=== PATIENT | female | born 2000 | race Caucasian/White ===

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

== ENCOUNTER → 2019-03-23 | Outpatient (CLI) | payer OTHER, MEDICAID ==
[~2019-03-23] MED LIST: IBUP-1114 PO; MAPA500T2 PO; prenatal PO
== END ==
LOC: M SMT 09:32
PROVIDERS: ATTEND Specialist
DX: N93.8 Other specified abnormal uterine and vaginal bleeding (principal)

== ENCOUNTER → 2019-03-25 | Outpatient (REF) | payer OTHER, MEDICAID | LOC: M LABSMT 12:59 | PROVIDERS: ATTEND Specialist | DX: N93.8 Other specified abnormal uterine and vaginal bleeding (principal) ==

== ENCOUNTER → 2019-10-19 | Outpatient (REF) | payer OTHER, MEDICAID | LOC: M PLALAB 10:08 | PROVIDERS: ATTEND Obstetrics & Gynecology | DX: Z34.91 Encounter for supervision of normal pregnancy, unspecified, first trimester (principal) ==

== ENCOUNTER → 2019-12-08 | Outpatient (REF) | payer OTHER, MEDICAID ==
[2019-12-08 15:01] LABS: CHLAMYDIA DNA AMPLIFICATION NEGATIVE (NEGATIVE); GC DNA AMPLIFICATION NEGATIVE (NEGATIVE)
[2019-12-08 17:43] LABS: HEMOGLOBIN 12.8 g/dl (12.0-15.5); MEAN CORPUSCULAR HEMOGLOBIN 30.3 pg (27.0-33.0); MEAN CORPUSCULAR HGB CONC 33.7 g/dl (32.0-36.5); PLATELET COUNT, AUTOMATED 294 10^3/uL (150-450); RED BLOOD COUNT 4.22 10^6/uL (4.00-5.40); WHITE BLOOD COUNT 8.8 10^3/uL (4.0-10.0)
[2019-12-09 11:39] LABS: HEPATITIS B SURFACE ANTIGEN NEGATIVE (NEGATIVE); HEPATITIS C VIRUS ABY INDEX 0.1 INDEX (<0.8); HIV 1&2 SCREEN CENTAUR NEGATIVE (NEGATIVE); RUBELLA IgG QUALITATIVE IMMUNE (IMMUNE)
== END ==
LOC: M PLALAB 11:57
PROVIDERS: ATTEND Obstetrics & Gynecology
DX: Z34.91 Encounter for supervision of normal pregnancy, unspecified, first trimester (principal)

== ENCOUNTER → 2019-12-14 | Outpatient (CLI) | payer OTHER, MEDICAID | LOC: M WHC 11:07 | PROVIDERS: ATTEND Obstetrics & Gynecology | DX: Z34.91 Encounter for supervision of normal pregnancy, unspecified, first trimester (principal) ==

== ENCOUNTER → 2020-01-13 | Outpatient (CLI) | payer SELFPAY ==
--- NOTE | 2020-01-13 12:49 | REP ---
OB ULTRASOUND: Real-time sonographic evaluation of the gravid uterus performed. There is a single living intrauterine gestation. The estimated gestational age is 19 weeks 0 days based on today's ultrasound measurements, [facility] 06/08/2020. BPD 43 mm = 19 weeks 0 days HC 160 mm = 18 weeks 6 days AC 140 mm = 19 weeks 3 days FL 30 mm = 19 weeks 3 days HC/AC ratio 1.14 within normal range of 1.06 to 1.25. Estimated weight 288 grams 59th percentile. SEEN/GROSSLY UNREMARKABLE Lateral ventricles Yes Posterior fossa Yes Upper lip Yes Four-chamber heart Yes. Echogenic focus is seen in each ventricle, likely related to papillary muscles/cordae tendinea. LVOT Yes RVOT Yes Stomach Yes Cord insertion Yes Three vessel cord Yes Kidneys Yes Bladder Yes Spine No. Only seen on sagittal views. Cervix is closed and measures 4.1 cm in length. heart rate 172 beats per minute. position is transverse with head toward the maternal right side. Placenta is anterior and grade 0 with no previa or abruption. Amniotic fluid within normal limits.
== END ==
LOC: M WHC 10:37
PROVIDERS: ATTEND Obstetrics & Gynecology
DX: Z36.89 Encounter for other specified antenatal screening (principal); Z3A.19 19 weeks gestation of pregnancy

== ENCOUNTER → 2020-03-04 | Outpatient (CLI) | payer SELFPAY ==
--- NOTE | 2020-03-04 13:53 | REP ---
REASON: Followup spine and intracardiac echogenic foci. Multiple ultrasonographic images of the gravid uterus show a single living intrauterine gestation in the transverse head to maternal left position. Doppler interrogation of the heart shows a heart rate of 146 beats per minute. The placenta is anterior and not low lying. The subjective amniotic fluid volume is within normal limits. The cervix measures 4.3 cm in length and is closed. Evaluation of the maternal adnexal spaces shows no abnormalities. BPD 6.6 cm = 26 weeks 3 days HC 24.4 cm = 26 weeks 4 days AC 22.0 cm = 26 weeks 3 days FL 4.9 cm = 26 weeks 3 days The estimated weight is 942 grams, which is at the 47th percentile for a 26 week 2 day gestational age and 39th percentile for a 26 week 4 day gestational age. The spine was visualized and showed no abnormalities. The intracardiac echogenic foci seen on the prior exam are not imaged today. IMPRESSION: Single living intrauterine gestation, as described above, with an estimated gestational age of 26 weeks 1 day via composite criteria and an estimated date of delivery of 06/09/2020 by today's exam. No anomalies were detected.
== END ==
LOC: M WHC 10:20
PROVIDERS: ATTEND Obstetrics & Gynecology
DX: O28.3 Abnormal ultrasonic finding on antenatal screening of mother (principal)

== ENCOUNTER → 2020-04-14 | Outpatient (REF) | payer MEDICAID, OTHER, SELFPAY ==
[~2020-04-14] MED LIST changes: +ACET-683 PO
[2020-05-12 13:43] LABS: HEMATOCRIT 37.7 % (36.0-47.0); HEMOGLOBIN 12.3 g/dl (12.0-15.5); MEAN CORPUSCULAR HEMOGLOBIN 30.1 pg (27.0-33.0); MEAN CORPUSCULAR HGB CONC 32.6 g/dl (32.0-36.5); MEAN CORPUSCULAR VOLUME 92.4 fl (80.0-96.0); PLATELET COUNT, AUTOMATED 236 10^3/uL (150-450); RED BLOOD COUNT 4.08 10^6/uL (4.00-5.40); WHITE BLOOD COUNT 12.2 10^3/uL (4.0-10.0)
[2020-05-29 16:28] LABS: ALT/SGPT 13 U/L (12-78); BILIRUBIN,TOTAL 0.2 MG/DL (0.2-1.0); CREATININE FOR GFR 0.51 MG/DL (0.55-1.30); GLOMERULAR FILTRATION RATE > 60.0 (>60); LDH LACTATE DEHYDROGENASE 176 U/L (84-246); URIC ACID 3.4 MG/DL (2.6-6.0)
== END ==
LOC: M SFHCWAGY 09:13
PROVIDERS: ATTEND Advanced Practice Midwife
DX: R51 Headache (principal)

== ENCOUNTER → 2020-04-27 | Outpatient (CLI) | payer MEDICAID, OTHER ==
[2020-04-27 17:44] LABS: TOTAL PROTEIN,RANDOM URINE 20.7 MG/DL (0.0-12.0)
== END ==
LOC: M PLALAB 13:48
PROVIDERS: ATTEND Advanced Practice Midwife
DX: O26.893 Other specified pregnancy related conditions, third trimester (principal); Z3A.00 Weeks of gestation of pregnancy not specified; R51 Headache

== ENCOUNTER → 2020-05-11 | Outpatient (REF) | payer MEDICAID, SELFPAY | LOC: M LAB REF 16:40 | PROVIDERS: ATTEND Advanced Practice Midwife | DX: Z34.83 Encounter for supervision of other normal pregnancy, third trimester (principal); Z3A.00 Weeks of gestation of pregnancy not specified ==

== ENCOUNTER 2020-06-03 23:34 | Outpatient (CLI) | payer MEDICAID, SELFPAY ==
[~2020-06-03] VITALS: Ht 157.5 cm; Wt 70.9 kg
[~2020-06-03 23:34] MED LIST changes: -ACET-683 PO
[2020-06-03 23:50] VITALS: BP 119/67
[2020-06-04] MEDS ORDERED: LR 1,000 ML IV SCH (00:15)
[2020-06-04] MEDS ORDERED: LACTATED RINGER'S 1000 ML IV ONE (00:15)
--- NOTE | 2020-06-04 00:19 | IPNPDOC ---
Text Note Date of Service The patient was seen on 06/04/20. NOTE Outpatient Stalin garcia arrived to L&D with C/O contractions through the day, that increased intensity at 2099. Denies LOF and bleeding. States good FM. States she has been eating and drinking (6 bottles of water) throughout the day. SVE /-1 by JUAN MIGUEL Barrera with informed consent, same as in the office on Saturday per patient. FHR 140bpm baseline, Cat 1. [place] shows UC 2-4min, 90-100sec. long, with multifocal ctx. noted. Discussed sedation and IV hydration. Shared decision to try IV Hydration first. LR bolus 500mL then LR @ 125mL/hr. Will Recheck in 2 hours for progress. VS,Fishbone, I+O VS, Fishbone, I+O Vital Signs Date Time Temp Pulse Resp B/P (MAP) Pulse Ox O2 Delivery O2 Flow Rate FiO2 06/03/20 23:50 98.0 108 16 119/67 (84) Ashley Weeks CNM Jun 04, 2020 00:19
[2020-06-04 00:49] LABS: HEMATOCRIT 39.1 % (36.0-47.0); MEAN CORPUSCULAR HEMOGLOBIN 28.8 pg (27.0-33.0); MEAN CORPUSCULAR HGB CONC 33.2 g/dl (32.0-36.5); MEAN CORPUSCULAR VOLUME 86.7 fl (80.0-96.0); PLATELET COUNT, AUTOMATED 270 10^3/uL (150-450); RED BLOOD COUNT 4.51 10^6/uL (4.00-5.40); WHITE BLOOD COUNT 16.1 10^3/uL (4.0-10.0)
[2020-06-04 00:51] VITALS: BP 107/64
--- NOTE | 2020-06-04 01:24 | IPNPDOC ---
Text Note Date of Service The patient was seen on 06/04/20. NOTE Outpatient States contractions less frequent but same intensity as when she arrived to L&D. States good FM. Denies bleeding, LOF. SVE /-1. posterior, no bloody show noted on glove by JUAN MIGUEL Barrera with informed consent. Cat 1 FHR 130baseline. UC by TOCO 3-6 min, 60-100sec., mild to palpation. Shared decision to discharge home with labor precautions. Reviewed labor precautions, warning signs, and access to care. VS,Fishbone, I+O VS, Fishbone, I+O Laboratory Tests 06/04/20 00:32 Vital Signs Date Time Temp Pulse Resp B/P (MAP) Pulse Ox O2 Delivery O2 Flow Rate FiO2 06/04/20 00:51 88 16 107/64 (78) 06/03/20 23:50 98.0 Ashley Weeks CNM Jun 04, 2020 01:24
== END 2020-06-04 02:21 | disposition home or self-care (01) ==
LOC: M LDO 23:34
PROVIDERS: ATTEND Advanced Practice Midwife
DX: O47.1 False labor at or after 37 completed weeks of gestation (principal); Z3A.38 38 weeks gestation of pregnancy

== ENCOUNTER 2020-06-04 19:48 | Inpatient (IN) | payer MEDICAID ==
[~2020-06-04] VITALS: Ht 157.5 cm; Wt 71.1 kg
[2020-06-04] VITALS (9 sets, daily range): BP systolic 113–139; BP diastolic 64–80
[2020-06-04] MEDS ORDERED: OXYTOCIN 30 UNITS IN 0.9% NaCl 500ML IV BAG (J2590) As Ordered ONE (21:22)
[2020-06-04] MEDS ORDERED: LACTATED RINGER'S 1000 ML IV STA (21:24)
[2020-06-04 21:47] LABS: HEMATOCRIT 36.7 % (36.0-47.0); MEAN CORPUSCULAR HEMOGLOBIN 27.8 pg (27.0-33.0); MEAN CORPUSCULAR HGB CONC 32.7 g/dl (32.0-36.5); MEAN CORPUSCULAR VOLUME 85.2 fl (80.0-96.0); PLATELET COUNT, AUTOMATED 280 10^3/uL (150-450); RED BLOOD COUNT 4.31 10^6/uL (4.00-5.40)
--- NOTE | 2020-06-04 22:24 | IPNPDOC ---
Text Note Date of Service The patient was seen on 06/04/20. NOTE Intrapartum Note Pt feeling increased pressure, breathing well with ctx. Vitals wnl, afebrile Cat I FHRT ctx q2-3min SCE: /-1, AROM performed with meconium stained fluid noted Will continue to closely observe Dr. Russo notified of presence of meconium Plan to recheck in 1-2hr or earlier as indicated Safe to proceed Dr. Judith Salazar MD VS,Mike, I+O VSMike I+O Laboratory Tests 06/04/20 21:42 Vital Signs Date Time Temp Pulse Resp B/P (MAP) Pulse Ox O2 Delivery O2 Flow Rate FiO2 06/04/20 20:01 97.4 115 16 114/72 (86) Judith Salazar MD Jun 04, 2020 22:24
[2020-06-04] MEDS ORDERED: FENTANYL 2MCG/ML ROPIVACAINE 0.2% IN 0.9% NACL 100ML IVBAG As Ordered ONE (23:08)
[2020-06-04] MEDS ORDERED: diphenhydrAMINE 50MG/ML VIAL (J1200) IV PRN (23:15)
[2020-06-04] MEDS ORDERED: ONDANSETRON 4MG/2ML VIAL IV PRN (23:15)
[2020-06-04] MEDS ORDERED: ePHEDrine SULFATE 25 MG/5 ML(5MG/ML) SYRINGE IV PRN (23:15)
[2020-06-04] MEDS ORDERED: NALOXONE INJ 0.4MG/1ML VIAL (J2310 PER 1MG) IV PRN (23:15)
[2020-06-04] MEDS ORDERED: EPIDURAL COMMENT XX SCH (23:15)
[2020-06-04] MEDS ORDERED: REFRIGERATOR IV KEYS XX PRN (23:15)
[2020-06-04] MEDS ORDERED: EPIDURAL/PCA KEYS XX PRN (23:15)
[2020-06-04] MEDS ORDERED: FENTANYL/ROPIVACAINE/NACL BAG 100 ML EPIDURAL SCH (23:15)
[2020-06-04] MEDS ORDERED: LACTATED RINGER'S 1000 ML IV PRN (23:15)
--- NOTE | 2020-06-04 23:28 | HPEPDOC ---
Obstetrical History & Physical General Date of Admission Jun 04, 2020 at 21:15 History of Present Illness Stalin is a 20yo with SIUP at 39w5d by lmp c/w u/s presenting with regular painful ctx. She was seen in triage last night and noted to not be in labor, sent home. She states ctx never really stopped since that time, but definitely became more painful over the course of today. No LOF, no VB, good movement. 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 ABDOMEN: Gravid and non-tender to touch. FETUS: Is vertex (VTX) by sterile vaginal examination (SVE) EXTREMITIES: No edema BLE Vital Signs/I&O Vital Signs Date Time Temp Pulse Resp B/P (MAP) Pulse Ox O2 Delivery O2 Flow Rate FiO2 06/04/20 20:01 97.4 115 16 114/72 (86) Laboratory Data 24H LABS Laboratory Tests 2 06/04/20 21:20: Serology Scanned Report Hepatitis B Testing 06/04/20 21:42: Nucleated Red Blood Cells % (auto) 0.0 CBC/BMP Laboratory Tests 06/04/20 21:42 Pertinent Laboratoy Data Blood Type: O+ RBC Antibody Screen: Negative HIV: Negative Hepatitis B: Negative Hepatitis C: Negative Rapid Plasma Reagin: Nonreactive Rubella: Immune Chlamydia/Gonorrhea: Negative Group B Streptococcus: Negative Glucose Tolerance Test: 92 Anatomy Ultrasound Ultrasound Date: January 13, 2020 Placenta Location: Anterior Normal Anatomy: Yes (EIF in both cardiac ventricles, not present on follow up u/s) Placenta Previa: No Steroid Therapy Steroid Therapy: No Vaginal Examination Dilation: 6 cm Effacement: 80% Station: -1 Cervical Consistency: Soft Cervical Position: Anterior Presentation: Cephalic presentation Assessment Heart Rate (FHR): 130 Variability: Moderate Accelerations: Positive Decelerations: None Tocometer Contractions: Yes Frequency: regular, every 3-7 min. Duration: greater than 60 seconds Strength: palpated as strong Assessment/Plan Assessment [place]ale is a 20yo with SIUP at 39w5d by lmp c/w u/s in active labor with regular painful ctx q2-4min and SCE 6/80/-1. Cephalic by SCE. Vitals wnl, benign exam. GBS negative. PMhx and course benign. Proven to 7lb5oz. Plan Admit and orient. 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 Diet: clear liquids Group B Streptococcus (GBS) negative Labs and intravenous (IV) per unit protocol. Lactated Ringers (LR): Bolus 800 mL Anticipate normal spontaneous delivery () Candidate for epidural if desired MD Marie Simon Katrina D MD Jun 04, 2020 23:28
[2020-06-05] VITALS (10 sets, daily range): BP systolic 107–136; BP diastolic 62–83
--- NOTE | 2020-06-05 00:27 | DNPDOC ---
[facility] Delivery Note Delivery Note DATE OF DELIVERY: 06/04/2020 PREDELIVERY DIAGNOSIS: 39w5d gestation and labor. POST DELIVERY DIAGNOSIS: Delivered. PROCEDURE: Spontaneous vaginal delivery ORTHOTIC/PROSTHETIC PRACTITIONER: Dr. Judith Salazar MD ANESTHESIA: epidural ESTIMATED BLOOD LOSS: 300 mL. FINDINGS: 7 pound 12 ounce (3520g) male , Score 7/9 DELIVERY SUMMARY: Stalin is a 20yo [id number] s/p uncomplicated at 2358 on 06/04/20 after presenting in active labor at 39w5d. She progressed to 8cm, had AROM with meconium noted. She then continued to 9cm at which point she received an epidural which really did not take effect until just after the baby delivered. When she was C/C/+1, she began pushing. delivered OA, restituted COOPER. Right anterior shoulder delivered followed by posterior shoulder and corpus. Spontaneous cry noted, infant placed on maternal abdomen. Cord clamped x2 immediately and cut by FOB, then taken to warmer for suctioning. Cord blood obtained for MBT O pos. With fundal massage and traction on the cord, placenta delivered spontaneously and intact with 3 vessel cord centrally inserted. More uterine massage performed and fundus then firm at u-2cm with hemostasis noted. Inspection of perineum and vagina revealed two small superficial abrasions of the inner left labia hemostatic and a small laceration on the inner right labia that was repaired with 4-0 vicryl in routine fashion with complete hemostasis. All counts correct x2. Mom and were doing well when I left the room. MD Marie Simon Katrina D MD Jun 05, 2020 00:27
[2020-06-05] MEDS ORDERED: OXYTOCIN DRIP 30 UNITS in IV 1 EA IV SCH (00:28)
[2020-06-05] MEDS ORDERED: IBUPROFEN 800 MG TAB PO PRN (00:30)
[2020-06-05] MEDS ORDERED: ACETAMINOPHEN TAB 650MG DOSE (2X325MG) PO PRN (00:30)
[2020-06-05] MEDS ORDERED: ACETAMINOPHEN 500 MG TAB PO PRN (00:30)
[2020-06-05] MEDS ORDERED: MEASLES,MUMPS,RUBELLA VACCINE INJ (MMR-II) (90707) SC SCH (00:30)
[2020-06-05] MEDS ORDERED: RHOGAM 300 MCG (1500 IU) INJ (J2790) IM SCH (00:30)
[2020-06-05] MEDS ORDERED: IBUPROFEN 600MG TAB PO PRN (00:30)
[2020-06-05] MEDS ORDERED: DIBUCAINE 1% OINTMENT 30GM TOP PRN (00:30)
[2020-06-05] MEDS ORDERED: DOCUSATE SODIUM 100MG CAPSULE PO PRN (00:30)
[2020-06-05] MEDS: PRENATAL VITAMINS CHEWABLE TABLET PO SCH (07:37)
[2020-06-06 06:00] VITALS: BP 124/72
--- NOTE | 2020-06-06 08:41 | IPNPDOC ---
Progress Note Date of Service: Jun 06, 2020 Day#: 2 Progress Note PPD 2 SUBJECT: Stalin is a 20yo [id number] s/p uncomplicated at 2358 on 06/04/20 after presenting in active labor at 39w5d, doing well day # 2. She has been ambulating, voiding spontaneously without issue and tolerating regular diet. Breast feeding without issue. Reports lochia is like a normal period. No f/c/n/v/CP/SOB. OBJECTIVE: VITAL SIGNS: Within normal limits, afebrile. Alert and oriented times three. Abdomen: Fundus firm at U-2. Soft, NTTP. Extremities: no pain with palpation of calves ASSESSMENT: Stalin is a 20yo [id number] s/p uncomplicated at 2358 on 06/04/20 after presenting in active labor at 39w5d, doing well day # 2. Vitals within normal limits, afebrile, hemodynamically stable with no evidence of infection. PLAN: 1. Discharge to home today. 2. Tylenol and Motrin for pain. 3. Encourage breast feeding and ambulation. 4. Unsure of contraception, may be interested in minipill vs Mirena, will re- discuss at PP visit 5. Routine PP visit in 6 weeks in clinic. 6. Discussed return precautions at length. Judith Salazar MD VS, I&O, 24H, Fishbone Vital Signs/I&O Vital Signs Date Time Temp Pulse Resp B/P (MAP) Pulse Ox O2 Delivery O2 Flow Rate FiO2 06/06/20 06:00 97.3 87 16 124/72 (89) 96 Room Air Judith Salazar MD Jun 06, 2020 08:41
[2020-06-06] MEDS ORDERED: ACET-683 PO (08:44)
--- NOTE | 2020-06-06 08:47 | DS.PDOC ---
Discharge Summary General Date of Admission Jun 04, 2020 at 21:15 Date of Discharge Jun 06, 2020 Discharge Summary PROCEDURES PERFORMED DURING STAY: spontaneous vaginal delivery ADMITTING DIAGNOSES: 1. active labor at term DISCHARGE DIAGNOSES: 1. active labor at term, delivered COMPLICATIONS/CHIEF COMPLAINT: LABOR. HISTORY OF PRESENT ILLNESS/HOSPITAL COURSE: Stalin is a 20yo [id number] s/p uncomplicated at 2358 on 06/04/20 after presenting in active labor at 39w5d, doing well day # 2. At time of discharge, vitals were within normal limits, afebrile, hemodynamically stable with no evidence of infection. DISCHARGE MEDICATIONS: Please see below. ALLERGIES: Please see below. PHYSICAL EXAMINATION ON DISCHARGE: VITAL SIGNS: Within normal limits, afebrile. Alert and oriented times three. Abdomen: Fundus firm at U-2. Soft, NTTP. Extremities: no pain with palpation of calves LABORATORY DATA: Please see below. ACTIVITY: As tolerated, vaginal rest 6 weeks no heavy lifting DIET: regular DISPOSITION: home DISCHARGE PLAN/INSTRUCTIONS: 1. Discharge to home today. 2. Tylenol and Motrin for pain. 3. Encourage breast feeding and ambulation. 4. Unsure of contraception, may be interested in minipill vs Mirena, will re- discuss at PP visit 5. Routine PP visit in 6 weeks in clinic. 6. Discussed return precautions at length. DISCHARGE CONDITION: Stable TIME SPENT ON DISCHARGE: Greater than 20 minutes. Judith Salazar MD Vital Signs/I&Os Vital Signs Date Time Temp Pulse Resp B/P (MAP) Pulse Ox O2 Delivery O2 Flow Rate FiO2 06/06/20 06:00 97.3 87 16 124/72 (89) 96 Room Air Discharge Medications Scheduled PRN Acetaminophen (Acetaminophen) 500 Mg Tablet, 1,000 MG PO Q6HP PRN for PAIN LEVEL 6-10 Allergies Coded Allergies: latex (Verified Allergy, Unknown, 06/03/20) Judith Salazar MD Jun 06, 2020 08:47
[2020-06-06] MEDS: PRENATAL VITAMINS CHEWABLE TABLET PO SCH (09:41)
== END 2020-06-06 18:10 | disposition home or self-care (01) | DRG 560 ==
LOC: M LDO 19:48 → EEVIPCON 21:15 → M LDI 21:15 → M OBS 06-05 02:45
PROVIDERS: ADMIT Obstetrics & Gynecology; ATTEND Obstetrics & Gynecology
PROC: 10E0XZZ Delivery of Products of Conception, External Approach (ICD-10-PCS; principal; 2020-06-04)
PROC: 0HQ9XZZ Repair Perineum Skin, External Approach (ICD-10-PCS; 2020-06-04)
PROC: 10907ZC Drainage of Amniotic Fluid, Therapeutic from Products of Conception, Via Natural or Artificial Opening (ICD-10-PCS; 2020-06-04)
DX: O77.0 Labor and delivery complicated by meconium in amniotic fluid (principal); Z3A.39 39 weeks gestation of pregnancy; O70.0 First degree perineal laceration during delivery; Z37.0 Single live birth

== ENCOUNTER → 2021-11-13 | Outpatient (CLI) | payer MEDICAID, OTHER ==
[~2021-11-13] MED LIST changes: +ACET-683 PO
== END ==
LOC: M PLALAB 09:15
PROVIDERS: ATTEND Obstetrics & Gynecology
DX: O36.80X0 Pregnancy with inconclusive fetal viability, not applicable or unspecified (principal)

== ENCOUNTER → 2021-11-15 | Outpatient (CLI) | payer OTHER | LOC: M PLALAB 12:00 | PROVIDERS: ATTEND Obstetrics & Gynecology | DX: O36.80X0 Pregnancy with inconclusive fetal viability, not applicable or unspecified (principal) ==

== ENCOUNTER → 2022-05-25 | Outpatient (REF) | payer OTHER | LOC: M PLALAB 11:50 | PROVIDERS: ATTEND Nurse Practitioner Family | DX: Z11.3 Encounter for screening for infections with a predominantly sexual mode of transmission (principal) ==

== ENCOUNTER → 2022-06-01 | Outpatient (CLI) | payer OTHER | LOC: M WHC 11:30 | PROVIDERS: ATTEND Nurse Practitioner Family | DX: R10.2 Pelvic and perineal pain (principal); N83.201 Unspecified ovarian cyst, right side ==

== ENCOUNTER → 2022-08-17 | Outpatient (CLI) | payer OTHER | LOC: M WHC 10:53 | PROVIDERS: ATTEND Nurse Practitioner Family | DX: N83.291 Other ovarian cyst, right side (principal) ==